=== PATIENT | male | born 1990 | race Two or more races ===

== ENCOUNTER 2021-12-31 21:01 | Emergency (ER) | payer SELFPAY ==
[~2021-12-31] VITALS: Ht 170.2 cm; Wt 91.0 kg
[2021-12-31] MEDS ORDERED: ceFAZolin SODIUM IV Push 1 GM VIAL. IVP ONE (21:30)
[2021-12-31] MEDS ORDERED: MORPHINE SULFATE 4 MG/ML INJ. IVP ONE (21:30)
[2021-12-31] MEDS ORDERED: BUPIVACAINE MPF 0.5% 30 ML VIAL. INJ ONE (21:30)
[2021-12-31] MEDS ORDERED: LIDOCAINE 1% PF 2 ML VIAL. INJ ONE (21:30)
--- NOTE | 2021-12-31 21:40 | PHYS DOC ---
General Adult EDM: Chief Complaint: LACERATION/AVULSION HPI: HPI: Patient is a right-handed 31-year-old Swedish-speaking male presenting to the ED today with left middle finger tip amputation. Patient states he was moving heavy furniture, the furniture fell on his finger smashing his finger between the furniture and the floor. Interpretation was provided by Dr. Serrato, and ADITI Alvarez Review of Systems: Review of Systems: Constitutional: Denies fever or chills. [] Musculoskeletal: Reports left middle finger tip amputation Integument: see above Neurologic: Denies headache, focal weakness or sensory changes. [] Psychiatric: Denies depression or anxiety. [] Heart Score: C/O Chest Pain: N/A Risk Factors: Risk Factors: DM, Current or recent (<one month) smoker, HTN, HLP, family history of CAD, obesity. Risk Scores: Score 0 - 3: 2.5% MACE over next 6 weeks - Discharge Home Score 4 - 6: 20.3% MACE over next 6 weeks - Admit for Clinical Observation Score 7 - 10: 72.7% MACE over next 6 weeks - Early Invasive Strategies Current Medications: Current Medications Medications (Trade) Dose Ordered Sig/Trinh Start Time Stop Time Status Last Admin Dose Admin Bupivacaine HCl (Sensorcaine Mpf 0.5%) 30 ml 1X ONCE 12/31/21 21:30 12/31/21 21:31 UNV Cefazolin Sodium (Ancef) 1 gm 1X ONCE 12/31/21 21:30 12/31/21 21:31 UNV Lidocaine HCl (Xylocaine-Mpf 1% 2ml Vial) 2 ml 1X ONCE 12/31/21 21:30 12/31/21 21:31 UNV Morphine Sulfate (Morphine Sulfate) 4 mg 1X ONCE 12/31/21 21:30 12/31/21 21:31 UNV 12/31/21 21:28 4 MG Physical Exam: PE: Constitutional: Well developed, well nourished, no acute distress, non-toxic appearance. [] Back: No tenderness, no CVA tenderness. [] Extremities/skin: Distal end of the left middle fingertip is amputated there is a tiny born barely visible under the laceration site. The nail is also amputated, patient able to flex and extend the finger at the MIP, PIP joints, adequate radial, ulnar sensation to the left middle finger. +2 left radial pulse. Cap refill less than 2 seconds to left middle finger. Neurologic: Alert and oriented X 3, normal motor function, normal sensory function, no focal deficits noted. [] Psychologic: Affect normal, judgement normal, mood normal. [] Current Patient Data: Vital Signs: Vital Signs Date Time Temp Pulse Resp B/P (MAP) Pulse Ox O2 Delivery O2 Flow Rate FiO2 12/31/21 21:28 20 99 Room Air EKG: EKG: [] Radiology/Procedures: Radiology/Procedures: []PROCEDURE: FINGER(S) LEFT XR FINGER(S)_LEFT 2+VIEWS_RT History: Reason: middle finger amputation / Spl. Instructions: / History: Technique: 3 views left hand Comparison: None. Findings: Acute traumatic left third distal tuft amputation. Comminuted fracture of the third distal tuft. No dislocation. No radiopaque foreign body. Short stature of the fourth and fifth metacarpals. Impression: 1. Acute traumatic third distal tuft amputation. 2. Short fourth and fifth metacarpals. Different considerations include prior trauma or infection or metabolic etiology such as pseudohypoparathyroidism among other etiologies. Electronically signed by: José Nguyen DO (12/31/2021 10:08 PM) [facility] DICTATED and SIGNED BY: JOSÉ NGUYEN DO DATE: 12/31/212204 Course & Med Decision Making: Course & Med Decision Making Pertinent Labs and Imaging studies reviewed. (See chart for details) This a 31-year-old male patient presenting to the ED today with amputation of the left middle finger distal end. Left middle finger x-rays interpreted by radiologist were noted for acute traumatic third distal tuft amputation. Finger was cleaned with 500 mL of normal saline, successful digital block was performed. Finger was covered with bulky dressing. Patient was given Ancef 1 g in the ED. I Spoke with Dr. Aquino, he requested we d/c him home have him call the office on Sunday. Discharged on cephalaxain, [place] as naproxen. Dr. Serrato evaluated the patient [place] Disclaimer: [place] Disclaimer: This electronic medical record was generated, in whole or in part, using a voice recognition dictation system. Departure Departure Impression: Primary Impression: Closed fracture of tuft of distal phalanx of finger Additional Impression: Amputation, finger, traumatic Qualified Codes: S68.119A - Complete traumatic metacarpophalangeal amputation of unspecified finger, initial encounter Disposition: HOME / SELF CARE / HOMELESS Condition: STABLE Referrals: NO PCP (PCP) CHAUNCEY KWON II, MD Please call him on Sunday for an appointment Patient Instructions: Finger Fracture, [id number], Fingertip Injuries and Amputations Additional Instructions: You have an amputation of the left middle finger. Please contact the provided orthopedic doctor on Sunday and they will set up an appointment in the clinic to see you and hopefully repair the finger. Received a tetanus shot. Keep the area clean and dry. The doctor should be able to give you an appointment next week and they will change the dressing during the office visit. Monitor the area for any signs of infection including but limited to increased redness, warmth, yellow drainage from the area and return to the ED if they occur. Take the prescribed antibiotics until completed. Scripts Hydrocodone Bit/Acetaminophen (HYDROCODONE-APAP 5-325 ) 1 Tab Tablet 1 TAB PO PRN Q6HRS PRN for PAIN, #25 TAB 0 Refills Prov: JACQUELINE PATIÑO APRN 12/31/21 Cephalexin (CEPHALEXIN) 500 Mg Tablet 1 TAB PO QID, #40 TAB Prov: JACQUELINE PATIÑO APRN 12/31/21 JACQUELINE PATIÑO APRN Dec 31, 2021 21:40
[2021-12-31] MEDS ORDERED: NEOMY/BACITR/POLYMYXIN OINT PACKET. TP ONE (21:45)
--- NOTE | 2021-12-31 22:10 | RAD ---
XR FINGER(S)_LEFT 2+VIEWS_RT History: Reason: middle finger amputation / Spl. Instructions: / History: Technique: 3 views left hand Comparison: None. Findings: Acute traumatic left third distal tuft amputation. Comminuted fracture of the third distal tuft. No d islocation. No radiopaque foreign body. Short stature of the fourth and fifth metacarpals. Impression: 1. Acute traumatic third distal tuft amputation. 2. Short fourth and fifth metacarpals. Different considerations include prior trauma or infection or metabolic etiology such as pseudohypoparathyroidism among other etiologies. Electronically signed by: José Nguyen DO (12/31/2021 10:08 PM) [facility]
[2021-12-31] MEDS ORDERED: DIPHTH,PERTUSS(ACELL),TET TOX 0.5 ML DISP.SYRIN. VAX IM ONE (22:15)
[2021-12-31] MEDS ORDERED: CEPH500T PO (23:43)
[2021-12-31] MEDS ORDERED: HYDR-2761 PO (23:43)
[2021-12-31 23:56] VITALS: BP 127/81
== END 2022-01-01 | disposition home or self-care (01) ==
LOC: ER 21:01
DX: S62.633A Displaced fracture of distal phalanx of left middle finger, initial encounter for closed fracture (principal); W18.39XA Other fall on same level, initial encounter; Y93.89 Activity, other specified; Y92.89 Other specified places as the place of occurrence of the external cause; Y99.8 Other external cause status
CPT/HCPCS: 64450; 73140; 90471; 90715; 96374; 96375; 99284; J0690; J2270; J3490